=== PATIENT | female | born 1940 | race Caucasian/White ===

== ENCOUNTER 2022-01-11 09:02 | Emergency (ER) | payer MEDICARE, OTHER ==
[~2022-01-11] VITALS: Ht 162.6 cm; Wt 57.4 kg
--- NOTE | 2022-01-11 09:20 | NUR ---
[facility] [employer] STAFF AND HITTING STAFF AN RN TODAY AT THE FACILITY. AAOX1, BREATHING EVEN AND UNLABORED, PULSES 2+ BILATERALLY. NO INJURY SEEN. TO ER BED 11, CHANGED TO GOWN. ON MONITOR. VS STABLE. WILL CONTINUE TO MONITOR.
--- NOTE | 2022-01-11 09:33 | NUR ---
URINE SAMPLE OBTAINED AND SENT TO LAB
[2022-01-11 09:45] LABS: BASOPHILS % (AUTO) 0.3 % (0.0-2.0); EOSINOPHILS % (AUTO) 1.1 % (0.0-6.0); HEMATOCRIT 41 % (33-45); HEMOGLOBIN 13.3 g/dL (11.5-14.8); LYMPHOCYTES # (AUTO) 1.7 K/uL (0.8-4.8); LYMPHOCYTES % (AUTO) 28.2 % (20.0-44.0); MEAN CORPUSCULAR HGB CONC 33 g/dl (31.0-36.0); MEAN CORPUSCULAR VOLUME 81 fL (82-100); MONOCYTES # (AUTO) 0.4 K/uL (0.1-1.30); MONOCYTES % (AUTO) 6.6 % (2.0-12.0); NEUTROPHILS # (AUTO) 3.9 K/uL (1.8-8.9); NEUTROPHILS % (AUTO) 63.8 % (43.0-81.0); PLATELET COUNT (AUTO) 359 K/uL (150-450); WHITE BLOOD COUNT (AUTO) 6.1 K/uL (4.3-11.0)
[2022-01-11 09:57] LABS: BILIRUBIN,URINE NEGATIVE (NEGATIVE); COLOR,URINE YELLOW (YELLOW); LEUKOCYTE ESTERASE ,URINE NEGATIVE (NEGATIVE); NITRITE, URINE NEGATIVE (NEGATIVE); PH,URINE 6.5 (5.0-8.0); PROTEIN,URINE NEGATIVE (NEGATIVE); UGLUCOSE NEGATIVE (NEGATIVE); UROBILINOGEN,URINE 0.2 EU/dL (0.2)
[2022-01-11 10:06] LABS: CALCIUM, SERUM 8.6 mg/dL (8.5-10.1); CARBON DIOXIDE 33 mmol/L (21-32); CHLORIDE 106 mmol/L (98-107); CREATININE 0.6 mg/dL (0.6-1.3); GLUCOSE 71 mg/dL (74-106); POTASSIUM 3.5 mmol/L (3.5-5.1); SODIUM SERUM 141 mmol/L (136-145); UREA NITROGEN, BLOOD 16 mg/dL (7-18)
--- NOTE | 2022-01-11 10:15 | NUR ---
LAYING IN BED, NEEDS MET
[2022-01-11] MEDS ORDERED: CRAN425C6 PO (10:17)
[2022-01-11] MEDS ORDERED: CRAN3875 PO (10:17)
[2022-01-11] MEDS ORDERED: ACET-868 PO (10:17)
[2022-01-11] MEDS ORDERED: BISA10SU11 RC (10:17)
[2022-01-11] MEDS ORDERED: AMLO-213 PO (10:17)
[2022-01-11] MEDS ORDERED: POLY17PO4 PO (10:17)
[2022-01-11] MEDS ORDERED: PROM25TA15 PO (10:17)
[2022-01-11] MEDS ORDERED: DIVA125C5 PO (10:17)
[2022-01-11] MEDS ORDERED: CRAN250C PO (10:17)
[2022-01-11 11:25] LABS: ALANINE AMINOTRANSFERASE 23 U/L (12-78); ALKALINE PHOSPHATASE 89 U/L (46-116); ASPARTATE AMINOTRANSFERASE 17 U/L (15-37); BILIRUBIN,DIRECT 0.1 mg/dL (0.0-0.2); BILIRUBIN,TOTAL 0.2 mg/dL (0.2-1.0)
[2022-01-11 11:43] LABS: ACETAMINOPHEN < 10 ug/ml (10-30); ALCOHOL, BLOOD < 3 mg/dL (0-0)
--- NOTE | 2022-01-11 12:22 | NUR ---
PT LAYING BED BED, AWAKE, VS STABLE
--- NOTE | 2022-01-11 13:55 | NUR ---
PT DIAPER CHANGED, MADE COMFORTABLE AFTER, VS STABLE.
--- NOTE | 2022-01-11 15:51 | NUR ---
CALLED [facility] AND SET UP S TRANSPORT ETA 170
--- NOTE | 2022-01-11 16:56 | NUR ---
called facility and gave report
--- NOTE | 2022-01-11 18:10 | NUR ---
[facility] HERE FOR TRANSPORT, REPORT GIVEN TO THEM
[2022-01-11 18:12] VITALS: BP 132/80
== END 2022-01-11 18:13 ==
LOC: ER 09:10
DX: R45.6 Violent behavior (principal); I10 Essential (primary) hypertension; F39 Unspecified mood [affective] disorder; F41.9 Anxiety disorder, unspecified; E78.00 Pure hypercholesterolemia, unspecified; Z86.69 Personal history of other diseases of the nervous system and sense organs; Z87.440 Personal history of urinary (tract) infections; Z79.899 Other long term (current) drug therapy
CPT/HCPCS: 36415; 80048-TC; 80076-TC; 85025-TC; G0480